=== PATIENT | female | born 1970 | race Caucasian/White ===

== ENCOUNTER 2020-01-06 11:22 | Emergency (ER) | payer OTHER ==
[~2020-01-06] VITALS: Ht 157.5 cm; Wt 88.9 kg
[2020-01-06 11:27] VITALS: Ht 157.5 cm; Wt 88.9 kg
[2020-01-06 12:15] LABS: PLATELET COUNT 263 x10^3mcL (130-400)
[2020-01-06 12:16] LABS: BASOPHIL % 0.8 % (0-2)
[2020-01-06 12:23] LABS: CALCIUM 10.2 mg/dL (8.5-10.1); CARBON DIOXIDE 28.5 mmol/L (21-32); CHLORIDE SERUM 103 mmol/L (98-107); CREATININE SERUM 0.9 mg/dL (0.6-1.0); GFR1 > 60 mL/min; GLUCOSE SERUM 112 mg/dL (74-106); POTASSIUM SERUM 3.8 mmol/L (3.5-5.1); SODIUM SERUM 141 mmol/L (136-145)
[2020-01-06 12:27] LABS: ALKALINE PHOSPHATASE 108 U/L (46-116); ALT/SGPT 66 U/L (14-59); AST/SGOT 33 U/L (15-37); BILIRUBIN TOTAL 0.3 mg/dL (0.20-1.00); TOTAL PROTEIN, SERUM 7.8 g/dL (6.4-8.2)
[2020-01-06 14:24] VITALS: BP 118/66
== END 2020-01-06 14:24 | disposition home or self-care (01) ==
LOC: ED 11:22
PROVIDERS: Emergency Medicine
DX: R07.89 Other chest pain (principal); I10 Essential (primary) hypertension
CPT/HCPCS: 36415; Q0092